=== PATIENT | female | born 2000 | race Caucasian/White ===

== ENCOUNTER 2018-05-16 11:09 | Outpatient (REF) | payer BC | END 2018-05-17 | LOC: M LAB REF 11:09 | DX: R19.7 Diarrhea, unspecified (principal); K62.5 Hemorrhage of anus and rectum; Z12.11 Encounter for screening for malignant neoplasm of colon | CPT/HCPCS: 83630 ==

== ENCOUNTER → 2018-05-17 | Outpatient (CLI) | payer BC ==
[2018-05-17 12:44] LABS: C REACTIVE PROTEIN QUANTITATIV < 0.30 MG/DL (0.00-0.30)
== END ==
LOC: M LAB 11:37
DX: R19.7 Diarrhea, unspecified (principal); K62.5 Hemorrhage of anus and rectum; Z12.11 Encounter for screening for malignant neoplasm of colon
CPT/HCPCS: 86140

== ENCOUNTER → 2019-10-06 | Outpatient (REF) | payer BC ==
[2019-10-06 20:32] LABS: BASO # 0.1 10^3/uL (0.0-0.2); BASO % 0.7 % (0.0-1.0); EOS # 0.2 10^3/uL (0.0-0.5); EOS % 2.2 % (0.0-3.0); HEMOGLOBIN 13.9 g/dl (12.0-15.5); LYMPH # 2.7 10^3/uL (1.5-5.0); LYMPH % 36.8 % (24.0-44.0); MEAN CORPUSCULAR HEMOGLOBIN 30.8 pg (27.0-33.0); MEAN CORPUSCULAR HGB CONC 31.6 g/dl (32.0-36.5); MEAN CORPUSCULAR VOLUME 97.6 fl (80.0-96.0); MONO # 0.8 10^3/uL (0.0-0.8); MONO % 10.1 % (0.0-5.0); NEUTROPHILS # 3.7 10^3/uL (1.5-8.5); NEUTROPHILS % 49.9 % (36.0-66.0); PLATELET COUNT, AUTOMATED 278 10^3/uL (150-450); RED BLOOD COUNT 4.51 10^6/uL (4.00-5.40); WHITE BLOOD COUNT 7.4 10^3/uL (4.0-10.0)
[2019-10-06 20:44] LABS: ALBUMIN 3.3 GM/DL (3.2-5.2); ALT/SGPT 26 U/L (12-78); BILIRUBIN,TOTAL 0.3 MG/DL (0.2-1.0); BLOOD UREA NITROGEN 9 MG/DL (7-18); CARBON DIOXIDE LEVEL 34 MEQ/L (21-32); CHLORIDE LEVEL 103 MEQ/L (98-107); CREATININE FOR GFR 0.96 MG/DL (0.55-1.30); FREE T4 1.19 NG/DL (0.76-1.46); GLOMERULAR FILTRATION RATE > 60.0 (>60); GLUCOSE, FASTING 81 MG/DL (70-100); SODIUM LEVEL 139 MEQ/L (136-145)
[2019-10-06 21:04] LABS: CREATININE, URINE 24.1 MG/DL; MALB URINE SIEMENS < 5.0 MG/L; MAU/CREAT RATIO 20.7 MCG/MG (0.0-30.0)
== END ==
LOC: M SFHCLERA 15:16
PROVIDERS: ATTEND Nurse Practitioner Family
DX: I10 Essential (primary) hypertension (principal)

== ENCOUNTER → 2020-01-01 | Outpatient (REF) | payer BC | LOC: M SFHCPLAZ 11:37 | PROVIDERS: ATTEND Physician Assistant | DX: N39.0 Urinary tract infection, site not specified (principal) ==

== ENCOUNTER → 2020-07-08 | Outpatient (REF) | payer BC | LOC: M SFHCLERA 13:24 | PROVIDERS: ATTEND Nurse Practitioner Family | DX: R30.0 Dysuria (principal) ==

== ENCOUNTER → 2020-09-11 | Outpatient (REF) | payer BC | LOC: M SFHCLERA 09:21 | PROVIDERS: ATTEND Nurse Practitioner Family | DX: R30.0 Dysuria (principal) ==

== ENCOUNTER → 2020-09-16 | Outpatient (REF) | payer BC ==
[2020-09-16 13:34] LABS: FOLLICLE STIMULATING HORMONE < 0.3 mIU/mL; LUTEINIZING HORMONE 0.6 mIU/mL; PROGESTERONE 0.32 NG/ML; PROLACTIN 7.3 NG/ML
== END ==
LOC: M PLALAB 08:48
PROVIDERS: ATTEND Specialist
DX: N92.6 Irregular menstruation, unspecified (principal)

== ENCOUNTER → 2021-10-24 | Outpatient (CLI) | payer BC ==
[~2021-10-24] MED LIST: CETI10CH PO; LISI10TA22 PO; OCEL3TAB PO
[2021-10-24 13:04] LABS: BASO % 0.4 % (0.0-1.0); EOS # 0.3 10^3/uL (0.0-0.5); EOS % 5.1 % (0.0-3.0); HEMATOCRIT 40.5 % (36.0-47.0); HEMOGLOBIN 13.1 g/dl (12.0-15.5); LYMPH # 2.2 10^3/uL (1.5-5.0); LYMPH % 32.6 % (24.0-44.0); MEAN CORPUSCULAR HEMOGLOBIN 30.4 pg (27.0-33.0); MEAN CORPUSCULAR HGB CONC 32.3 g/dl (32.0-36.5); MONO # 0.6 10^3/uL (0.0-0.8); MONO % 8.5 % (2.0-8.0); NEUTROPHILS # 3.6 10^3/uL (1.5-8.5); NEUTROPHILS % 53.1 % (36.0-66.0); PLATELET COUNT, AUTOMATED 291 10^3/uL (150-450); RED BLOOD COUNT 4.31 10^6/uL (4.00-5.40); WHITE BLOOD COUNT 6.7 10^3/uL (4.0-10.0)
[2021-10-24 13:14] LABS: APPEARANCE, URINE HAZY (CLEAR); BACTERIA, URINE AUTO 1+ (NEGATIVE); BILIRUBIN, URINE AUTO NEGATIVE (NEGATIVE); BLOOD, URINE BLOOD NEGATIVE (NEGATIVE); COLOR, URINE YELLOW (YELLOW); GLUCOSE, URINE (UA) AUTO NEGATIVE (NEGATIVE); KETONE, URINE AUTO NEGATIVE (NEGATIVE); LEUKOCYTE ESTERASE, URINE AUTO NEGATIVE (NEGATIVE); NITRITE, URINE AUTO NEGATIVE (NEGATIVE); PROTEIN, URINE AUTO NEGATIVE (NEGATIVE); RBC, URINE AUTO 3 /HPF (0-3); SPECIFIC GRAVITY URINE AUTO 1.015 (1.002-1.035); SQUAMOUS EPITHELIAL CELL UR AU 2 /HPF (0-6); UROBILINOGEN, URINE AUTO 0.2 mg/dL (0.0-2.0); WBC, URINE AUTO 0 /HPF (0-3)
[2021-10-24 13:35] LABS: ALBUMIN 3.4 GM/DL (3.2-5.2); ALT/SGPT 24 U/L (12-78); BILIRUBIN,TOTAL 0.9 MG/DL (0.2-1.0); BLOOD UREA NITROGEN 16 MG/DL (7-18); CALCIUM LEVEL 9.5 MG/DL (8.5-10.1); CARBON DIOXIDE LEVEL 25 MEQ/L (21-32); CHLORIDE LEVEL 107 MEQ/L (98-107); CREATININE FOR GFR 0.89 MG/DL (0.55-1.30); GLOMERULAR FILTRATION RATE > 60.0 (>60); GLUCOSE, FASTING 82 MG/DL (70-100); LIPASE 151 U/L (73-393); POTASSIUM SERUM 4.8 MEQ/L (3.5-5.1); SODIUM LEVEL 138 MEQ/L (136-145); TOTAL PROTEIN 7.2 GM/DL (6.4-8.2)
== END ==
LOC: M PLALAB 09:35
PROVIDERS: ATTEND Physician Assistant
DX: R10.13 Epigastric pain (principal); R10.11 Right upper quadrant pain; Z83.79 Family history of other diseases of the digestive system

== ENCOUNTER → 2021-10-24 | Outpatient (CLI) | payer BC | LOC: M RAD 11:19 | PROVIDERS: ATTEND Physician Assistant | DX: R10.13 Epigastric pain (principal) ==

== ENCOUNTER → 2021-12-23 | Outpatient (CLI) | payer BC | LOC: M RAD 11:48 | PROVIDERS: ATTEND Internal Medicine Gastroenterology | DX: R10.30 Lower abdominal pain, unspecified (principal) ==

== ENCOUNTER 2022-11-04 17:07 | Emergency (ER) | payer BC ==
[~2022-11-04] VITALS: Ht 160 cm; Wt 63.6 kg
[2022-11-04 17:48] LABS: BASO % 0.1 % (0.0-1.0); EOS % 0.1 % (0.0-3.0); HEMATOCRIT 41.3 % (36.0-47.0); HEMOGLOBIN 13.6 g/dl (12.0-15.5); LYMPH # 1.1 10^3/uL (1.5-5.0); LYMPH % 15.1 % (24.0-44.0); MEAN CORPUSCULAR HEMOGLOBIN 30.6 pg (27.0-33.0); MEAN CORPUSCULAR HGB CONC 32.9 g/dl (32.0-36.5); MONO # 0.3 10^3/uL (0.0-0.8); MONO % 4.1 % (2.0-8.0); NEUTROPHILS # 5.9 10^3/uL (1.5-8.5); NEUTROPHILS % 80.2 % (36.0-66.0); PLATELET COUNT, AUTOMATED 298 10^3/uL (150-450); RED BLOOD COUNT 4.44 10^6/uL (4.00-5.40); WHITE BLOOD COUNT 7.4 10^3/uL (4.0-10.0)
[2022-11-04 18:08] LABS: LIPASE 31 U/L (12-53)
[2022-11-04] MEDS ORDERED: FAMOTIDINE 20MG/2ML VIAL IVP ONE (18:10)
[2022-11-04] MEDS ORDERED: GI COCKTAIL 50ML BTL(HYOSCYAMINE/MAALOX/LIDOCAINE VISCOUS)(1:3:1) PO ONE (18:10)
[2022-11-04] MEDS ORDERED: KETOROLAC 30 MG/ML 1ML VIAL IV ONE (18:10)
[2022-11-04] MEDS ORDERED: ONDANSETRON 4MG 2ML VIAL IV ONE (18:10)
[2022-11-04 18:14] LABS: ALBUMIN 3.5 G/DL (3.2-5.2); ALKALINE PHOSPHATASE 46 U/L (46-116); ALT/SGPT 21 U/L (7.0-40); AST/SGOT 16 U/L (<34); BILIRUBIN,DIRECT < 0.1 MG/DL (<0.4); BILIRUBIN,TOTAL 0.3 MG/DL (0.3-1.2); BLOOD UREA NITROGEN 5 MG/DL (9-23); CALCIUM LEVEL 9.7 MG/DL (8.5-10.1); CARBON DIOXIDE LEVEL 27 MMOL/L (20-31); CHLORIDE LEVEL 100 MMOL/L (98-107); CREATININE FOR GFR 0.63 MG/DL (0.55-1.30); GLOMERULAR FILTRATION RATE > 60.0 (>60); GLUCOSE, FASTING 113 MG/DL (60-100); POTASSIUM SERUM 3.8 MMOL/L (3.5-5.1); SODIUM LEVEL 136 MMOL/L (136-145); TOTAL PROTEIN 7.1 G/DL (5.7-8.2)
[2022-11-04] MEDS ORDERED: NS 1,000 ML IV ONE (18:15)
[2022-11-04 18:16] LABS: HCG, SERUM QUALITATIVE NEGATIVE (NEGATIVE)
[2022-11-04] MEDS ORDERED: ISOVUE-370 76% 100ML VIAL As Ordered ONE (18:51)
[2022-11-04] MEDS ORDERED: ONDA4TAB6 PO (20:34)
[2022-11-04] MEDS ORDERED: OMEP40CA5 PO (20:34)
[2022-11-04] MEDS ORDERED: CARA1TAB6 PO (20:34)
[2022-11-04 20:52] VITALS: BP 178/82
== END 2022-11-04 20:53 | disposition home or self-care (01) ==
LOC: M ED 17:07
DX: R10.10 Upper abdominal pain, unspecified (principal); R11.0 Nausea; I10 Essential (primary) hypertension; N28.1 Cyst of kidney, acquired; Z88.5 Allergy status to narcotic agent; Z91.018 Allergy to other foods; Z79.899 Other long term (current) drug therapy
CPT/HCPCS: 74177; 80048; 80076; 81001; 83605; 83690; 84703; 85025; 96361; 96374; 96375; 99284; J1885; J2405; S0028

== ENCOUNTER → 2023-01-01 | Outpatient (CLI) | payer BC ==
[~2023-01-01] MED LIST changes: +CARA1TAB6 PO; +OMEP40CA5 PO; +ONDA4TAB6 PO
== END ==
LOC: M RAD 07:33
PROVIDERS: ATTEND Physician Assistant Medical
DX: R14.0 Abdominal distension (gaseous) (principal)
CPT/HCPCS: 78227; A9537

== ENCOUNTER → 2024-07-17 | Outpatient (CLI) | payer SELFPAY ==
[~2024-07-17] MED LIST changes: +ONDA-282 PO; -ONDA4TAB6 PO
[2024-07-17 11:41] LABS: HCG, SERUM QUANTITATIVE 739.9 MIU/ML (<4.2)
[2024-07-17 11:45] LABS: PROGESTERONE 16.4 NG/ML
== END ==
LOC: M LAB 10:32
PROVIDERS: ATTEND Advanced Practice Midwife
DX: Z32.01 Encounter for pregnancy test, result positive (principal); Z3A.00 Weeks of gestation of pregnancy not specified

== ENCOUNTER → 2024-09-05 | Outpatient (CLI) | payer SELFPAY ==
[2024-09-05 16:47] LABS: APPEARANCE, URINE CLOUDY (CLEAR); BACTERIA, URINE AUTO 1+ (NEGATIVE); BILIRUBIN, URINE AUTO NEGATIVE (NEGATIVE); BLOOD, URINE BLOOD NEGATIVE (NEGATIVE); COLOR, URINE YELLOW (YELLOW); GLUCOSE, URINE (UA) AUTO NEGATIVE (NEGATIVE); KETONE, URINE AUTO NEGATIVE (NEGATIVE); LEUKOCYTE ESTERASE, URINE AUTO NEGATIVE (NEGATIVE); NITRITE, URINE AUTO NEGATIVE (NEGATIVE); PROTEIN, URINE AUTO NEGATIVE (NEGATIVE); RBC, URINE AUTO 1 /HPF (0-3); SPECIFIC GRAVITY URINE AUTO 1.013 (1.002-1.035); SQUAMOUS EPITHELIAL CELL UR AU 5 /HPF (0-6); UROBILINOGEN, URINE AUTO 0.2 mg/dL (0.0-2.0); WBC, URINE AUTO 1 /HPF (0-3)
[2024-09-05 16:50] LABS: BASO % 0.4 % (0.0-1.0); EOS # 0.1 10^3/uL (0.0-0.5); EOS % 1.2 % (0.0-3.0); HEMATOCRIT 40.1 % (36.0-47.0); HEMOGLOBIN 13.7 g/dl (12.0-15.5); LYMPH # 1.8 10^3/uL (1.5-5.0); LYMPH % 16.6 % (24.0-44.0); MEAN CORPUSCULAR HGB CONC 34.2 g/dl (32.0-36.5); MEAN CORPUSCULAR VOLUME 93.7 fl (80.0-96.0); MONO # 0.8 10^3/uL (0.0-0.8); MONO % 7.4 % (2.0-8.0); NEUTROPHILS # 7.8 10^3/uL (1.5-8.5); NEUTROPHILS % 72.9 % (36.0-66.0); PLATELET COUNT, AUTOMATED 320 10^3/uL (150-450); RED BLOOD COUNT 4.28 10^6/uL (4.00-5.40); WHITE BLOOD COUNT 10.8 10^3/uL (4.0-10.0)
[2024-09-05 17:11] LABS: AMPHETAMINES URINE REFLEX NEGATIVE (NEGATIVE); CANNABINOIDS URINE REFLEX NEGATIVE (NEGATIVE); PHENCYCLIDINE URINE REFLEX NEGATIVE (NEGATIVE)
[2024-09-05 17:12] LABS: BARBITURATES URINE REFLEX NEGATIVE (NEGATIVE); BENZODIAZEPINES URINE REFLEX NEGATIVE (NEGATIVE); COCAINE METABOLITE URINE REFLE NEGATIVE (NEGATIVE); METHADONE URINE REFLEX NEGATIVE (NEGATIVE); OPIATES URINE REFLEX NEGATIVE (NEGATIVE)
[2024-09-05 17:15] LABS: CREATININE,RANDOM URINE 96.6 MG/DL; TOTAL PROTEIN,RANDOM URINE 15.2 MG/DL (0.0-14.0)
[2024-09-05 17:16] LABS: LDH LACTATE DEHYDROGENASE 157 U/L (120-246)
[2024-09-05 17:17] LABS: ALBUMIN 3.2 G/DL (3.2-5.2); ALKALINE PHOSPHATASE 65 U/L (35-104); ALT/SGPT 27 U/L (7.0-40); AST/SGOT 20 U/L (<34); BILIRUBIN,TOTAL 0.5 MG/DL (0.3-1.2); BLOOD UREA NITROGEN 11 MG/DL (9-23); CALCIUM LEVEL 9.4 MG/DL (8.5-10.1); CARBON DIOXIDE LEVEL 25 MMOL/L (20-31); CHLORIDE LEVEL 104 MMOL/L (98-107); CREATININE FOR GFR 0.61 MG/DL (0.55-1.30); GLOMERULAR FILTRATION RATE > 60.0 (>60); GLUCOSE, FASTING 77 MG/DL (60-100); POTASSIUM SERUM 3.7 MMOL/L (3.5-5.1); SODIUM LEVEL 137 MMOL/L (136-145); TOTAL PROTEIN 7.1 G/DL (5.7-8.2)
[2024-09-05 17:18] LABS: TOTAL T3 149.3 NG/DL (60.0-181.0)
[2024-09-05 17:19] LABS: FREE THYROXINE INDEX 4.1 % (1.3-4.8); T UPTAKE 30.1 % (22.5-37.0); THYROID STIMULATING HORMONE 0.339 uIU/ML (0.55-4.78); THYROXINE (T4) 13.7 UG/DL (4.5-10.9); TOTAL 25(OH) VITAMIN D 69.4 NG/ML (20.0-100.0)
[2024-09-05 17:37] LABS: HEPATITIS B SURFACE ANTIGEN NEGATIVE (NEGATIVE)
[2024-09-05 17:49] LABS: HIV 1&2 SCREEN NEGATIVE (NEGATIVE)
[2024-09-05 17:57] LABS: HEPATITIS C VIRUS ABY INDEX < 0.02 INDEX (<0.8)
[2024-09-08 13:43] LABS: HERPES ZOSTER, VARICELLA IgG 2.59 S/CO (>=1.00)
== END ==
LOC: M WUC 11:32
PROVIDERS: ATTEND Advanced Practice Midwife
DX: Z34.81 Encounter for supervision of other normal pregnancy, first trimester (principal); I10 Essential (primary) hypertension

== ENCOUNTER → 2024-12-18 | Outpatient (CLI) | payer SELFPAY ==
[2024-12-18 12:55] LABS: GLUCOSE CHALLENGE TEST 1 HOUR 113 MG/DL (LESS THAN 140)
[2024-12-18 12:59] LABS: HEMATOCRIT 38.8 % (36.0-47.0); HEMOGLOBIN 12.5 g/dl (12.0-15.5); PLATELET COUNT, AUTOMATED 257 10^3/uL (150-450)
== END ==
LOC: M WUC 09:03
PROVIDERS: ATTEND Advanced Practice Midwife
DX: Z36.89 Encounter for other specified antenatal screening (principal)